=== PATIENT | female | born 1975 | race Caucasian/White ===

== ENCOUNTER 2017-02-14 05:04 | Emergency (ER) | payer BC ==
[~2017-02-14] VITALS: Ht 165.1 cm; Wt 58.1 kg
[2017-02-14 05:35] VITALS: BP_SYST 123
[2017-02-14] MEDS ORDERED: DIPH-TET-PERTUS Vaccine 0.5 ML VIAL (ADACEL) I.M. ONE (05:45)
[2017-02-14] MEDS ORDERED: LIDOCAINE 2%, 20 ML MDV INJ ONE (05:45)
[2017-02-14 06:25] VITALS: BP_SYST 122
== END 2017-02-14 06:25 | disposition left against medical advice (07) ==
LOC: SED 05:04
DX: S01.111A Laceration without foreign body of right eyelid and periocular area, initial encounter (principal); W19.XXXA Unspecified fall, initial encounter; Y93.89 Activity, other specified; Y92.89 Other specified places as the place of occurrence of the external cause; Y99.8 Other external cause status
CPT/HCPCS: 12011; 90471; 90715; 99283; J2001